=== PATIENT | male | born 1945 ===

== ENCOUNTER 2018-08-28 13:00 | Outpatient (CLI) | payer MEDICARE, OTHER | END 2018-08-28 23:59 | disposition home health service (06) | LOC: WOU 13:00 | PROVIDERS: ATTEND Podiatrist Foot & Ankle Surgery | DX: E11.621 Type 2 diabetes mellitus with foot ulcer (principal); Z89.422 Acquired absence of other left toe(s); E11.51 Type 2 diabetes mellitus with diabetic peripheral angiopathy without gangrene; L97.422 Non-pressure chronic ulcer of left heel and midfoot with fat layer exposed; I10 Essential (primary) hypertension; Z87.891 Personal history of nicotine dependence; Z79.4 Long term (current) use of insulin; E11.649 Type 2 diabetes mellitus with hypoglycemia without coma | CPT/HCPCS: 11042; A6402; Z7610 ==

== ENCOUNTER 2018-09-04 13:30 | Outpatient (CLI) | payer MEDICARE, OTHER | END 2018-09-04 23:59 | disposition home health service (06) | LOC: WOU 13:30 | PROVIDERS: ATTEND Podiatrist Foot & Ankle Surgery | DX: E11.621 Type 2 diabetes mellitus with foot ulcer (principal); L97.422 Non-pressure chronic ulcer of left heel and midfoot with fat layer exposed; Z89.422 Acquired absence of other left toe(s); E11.51 Type 2 diabetes mellitus with diabetic peripheral angiopathy without gangrene; I10 Essential (primary) hypertension; Z87.891 Personal history of nicotine dependence; Z79.4 Long term (current) use of insulin | CPT/HCPCS: 11042; A6207; A6402; Z7610; J3490 ==

== ENCOUNTER 2018-10-02 12:30 | Outpatient (CLI) | payer MEDICARE, MEDICAID | END 2018-10-02 23:59 | disposition home health service (06) | LOC: WOU 12:30 | PROVIDERS: ATTEND Podiatrist Foot & Ankle Surgery | DX: E11.621 Type 2 diabetes mellitus with foot ulcer (principal); L97.422 Non-pressure chronic ulcer of left heel and midfoot with fat layer exposed; Z89.422 Acquired absence of other left toe(s); E11.51 Type 2 diabetes mellitus with diabetic peripheral angiopathy without gangrene; Z87.891 Personal history of nicotine dependence; Z83.3 Family history of diabetes mellitus; I10 Essential (primary) hypertension | CPT/HCPCS: 11042; 82962-TC; A6402 ==

== ENCOUNTER 2018-10-09 09:52 | Outpatient (CLI) | payer MEDICARE, MEDICAID | END 2018-10-09 23:59 | disposition home health service (06) | LOC: WOU 09:52 | PROVIDERS: ATTEND Podiatrist Foot & Ankle Surgery | DX: E11.621 Type 2 diabetes mellitus with foot ulcer (principal); L97.422 Non-pressure chronic ulcer of left heel and midfoot with fat layer exposed; E11.51 Type 2 diabetes mellitus with diabetic peripheral angiopathy without gangrene; Z89.422 Acquired absence of other left toe(s); Z87.891 Personal history of nicotine dependence; Z79.4 Long term (current) use of insulin | CPT/HCPCS: 11042; 82962-TC; A6207; A6402 ==

== ENCOUNTER 2018-10-16 11:09 | Outpatient (CLI) | payer MEDICARE, MEDICAID ==
[2019-02-16] MEDS ORDERED: DOXY100T2 PO (13:25)
[2019-02-16] MEDS ORDERED: LOSA25TA3 PO (13:25)
[2019-02-16] MEDS ORDERED: Insulin Glargine,Hum SQ (13:32)
== END 2018-10-16 23:59 | disposition home or self-care (01) ==
LOC: WOU 11:09
PROVIDERS: ATTEND Podiatrist Foot & Ankle Surgery
DX: E11.621 Type 2 diabetes mellitus with foot ulcer (principal); L97.422 Non-pressure chronic ulcer of left heel and midfoot with fat layer exposed; E11.51 Type 2 diabetes mellitus with diabetic peripheral angiopathy without gangrene; Z89.422 Acquired absence of other left toe(s); T87.89 Other complications of amputation stump; I10 Essential (primary) hypertension; Z83.3 Family history of diabetes mellitus; Z87.891 Personal history of nicotine dependence; Z79.4 Long term (current) use of insulin
CPT/HCPCS: 11042; 82962-TC; A6207

== ENCOUNTER 2018-10-23 10:17 | Outpatient (CLI) | payer MEDICARE, OTHER | END 2018-10-23 23:59 | disposition home health service (06) | LOC: WOU 10:17 | PROVIDERS: ATTEND Podiatrist Foot & Ankle Surgery | DX: E11.621 Type 2 diabetes mellitus with foot ulcer (principal); L97.422 Non-pressure chronic ulcer of left heel and midfoot with fat layer exposed; E11.51 Type 2 diabetes mellitus with diabetic peripheral angiopathy without gangrene; Z89.422 Acquired absence of other left toe(s); Z87.891 Personal history of nicotine dependence; Z79.4 Long term (current) use of insulin | CPT/HCPCS: 15275; A6402 ==

== ENCOUNTER 2018-10-30 10:15 | Outpatient (CLI) | payer MEDICARE, OTHER | END 2018-10-30 23:59 | disposition home health service (06) | LOC: WOU 10:15 | PROVIDERS: ATTEND Podiatrist Foot & Ankle Surgery | DX: E11.621 Type 2 diabetes mellitus with foot ulcer (principal); L97.422 Non-pressure chronic ulcer of left heel and midfoot with fat layer exposed; Z89.422 Acquired absence of other left toe(s); E11.51 Type 2 diabetes mellitus with diabetic peripheral angiopathy without gangrene; I10 Essential (primary) hypertension; Z87.891 Personal history of nicotine dependence; Z79.4 Long term (current) use of insulin | CPT/HCPCS: 11042; A6402; Z7610 ==

== ENCOUNTER 2018-11-13 10:08 | Outpatient (CLI) | payer MEDICARE, MEDICAID | END 2018-11-13 23:59 | disposition home health service (06) | LOC: WOU 10:08 | PROVIDERS: ATTEND Podiatrist Foot & Ankle Surgery | DX: E11.621 Type 2 diabetes mellitus with foot ulcer (principal); L97.422 Non-pressure chronic ulcer of left heel and midfoot with fat layer exposed; E11.51 Type 2 diabetes mellitus with diabetic peripheral angiopathy without gangrene; Z89.422 Acquired absence of other left toe(s); I10 Essential (primary) hypertension; Z87.891 Personal history of nicotine dependence; Z79.4 Long term (current) use of insulin; Z79.899 Other long term (current) drug therapy | CPT/HCPCS: 11042; A6402 ==

== ENCOUNTER 2018-12-04 10:45 | Outpatient (CLI) | payer MEDICARE, MEDICAID | END 2018-12-04 23:59 | disposition home health service (06) | LOC: WOU 10:45 | PROVIDERS: ATTEND Podiatrist Foot & Ankle Surgery | DX: E11.621 Type 2 diabetes mellitus with foot ulcer (principal); L97.422 Non-pressure chronic ulcer of left heel and midfoot with fat layer exposed; Z89.422 Acquired absence of other left toe(s); E11.51 Type 2 diabetes mellitus with diabetic peripheral angiopathy without gangrene; I10 Essential (primary) hypertension; Z87.891 Personal history of nicotine dependence; Z79.4 Long term (current) use of insulin; L84 Corns and callosities | CPT/HCPCS: 11042; A6402 ==

== ENCOUNTER 2018-12-19 11:25 | Outpatient (CLI) | payer MEDICARE, MEDICAID ==
[2019-02-16] MEDS ORDERED: DOXY100T2 PO (13:25)
[2019-02-16] MEDS ORDERED: LOSA25TA3 PO (13:25)
[2019-02-16] MEDS ORDERED: Insulin Glargine,Hum SQ (13:32)
== END 2018-12-19 23:59 | disposition home health service (06) ==
LOC: WOU 11:25
PROVIDERS: ATTEND Podiatrist Foot & Ankle Surgery
DX: L97.422 Non-pressure chronic ulcer of left heel and midfoot with fat layer exposed (principal); Z89.422 Acquired absence of other left toe(s); E11.51 Type 2 diabetes mellitus with diabetic peripheral angiopathy without gangrene; Z87.891 Personal history of nicotine dependence; I10 Essential (primary) hypertension; Z79.4 Long term (current) use of insulin; Z79.899 Other long term (current) drug therapy
CPT/HCPCS: 11042; A6402 ×2

== ENCOUNTER 2018-12-25 10:55 | Outpatient (CLI) | payer MEDICARE, MEDICAID | END 2018-12-25 23:59 | disposition home or self-care (01) | LOC: WOU 10:55 | PROVIDERS: ATTEND Podiatrist Foot & Ankle Surgery | DX: E11.621 Type 2 diabetes mellitus with foot ulcer (principal); L97.422 Non-pressure chronic ulcer of left heel and midfoot with fat layer exposed; Z89.422 Acquired absence of other left toe(s); E11.51 Type 2 diabetes mellitus with diabetic peripheral angiopathy without gangrene; I10 Essential (primary) hypertension; Z83.3 Family history of diabetes mellitus; Z79.4 Long term (current) use of insulin; Z79.899 Other long term (current) drug therapy | CPT/HCPCS: 11042; A6402 ==

== ENCOUNTER 2019-01-01 10:35 | Outpatient (CLI) | payer MEDICARE, MEDICAID | END 2019-01-01 23:59 | disposition home health service (06) | LOC: WOU 10:35 | PROVIDERS: ATTEND Podiatrist Foot & Ankle Surgery | DX: E11.621 Type 2 diabetes mellitus with foot ulcer (principal); L97.422 Non-pressure chronic ulcer of left heel and midfoot with fat layer exposed; E11.51 Type 2 diabetes mellitus with diabetic peripheral angiopathy without gangrene; Z89.422 Acquired absence of other left toe(s); I10 Essential (primary) hypertension; Z87.891 Personal history of nicotine dependence; Z79.4 Long term (current) use of insulin; Z79.899 Other long term (current) drug therapy | CPT/HCPCS: 15275; A6402; Q4186; A6209 ==

== ENCOUNTER 2019-01-08 11:30 | Outpatient (CLI) | payer MEDICARE, MEDICAID | END 2019-01-08 23:59 | disposition home or self-care (01) | LOC: WOU 11:30 | PROVIDERS: ATTEND Podiatrist Foot & Ankle Surgery | DX: E11.621 Type 2 diabetes mellitus with foot ulcer (principal); L97.422 Non-pressure chronic ulcer of left heel and midfoot with fat layer exposed; E11.51 Type 2 diabetes mellitus with diabetic peripheral angiopathy without gangrene; Z89.422 Acquired absence of other left toe(s); I10 Essential (primary) hypertension; Z87.891 Personal history of nicotine dependence; Z79.4 Long term (current) use of insulin; Z79.899 Other long term (current) drug therapy | CPT/HCPCS: 15275; A6402 ==

== ENCOUNTER 2019-01-15 11:00 | Outpatient (CLI) | payer MEDICARE, MEDICAID ==
[2019-02-16] MEDS ORDERED: LOSA25TA3 PO (13:25)
[2019-02-16] MEDS ORDERED: DOXY100T2 PO (13:25)
[2019-02-16] MEDS ORDERED: Insulin Glargine,Hum SQ (13:32)
== END 2019-01-15 23:59 | disposition home health service (06) ==
LOC: WOU 11:00
PROVIDERS: ATTEND Podiatrist Foot & Ankle Surgery
DX: E11.621 Type 2 diabetes mellitus with foot ulcer (principal); L97.422 Non-pressure chronic ulcer of left heel and midfoot with fat layer exposed; E11.51 Type 2 diabetes mellitus with diabetic peripheral angiopathy without gangrene; Z79.4 Long term (current) use of insulin; I10 Essential (primary) hypertension; Z87.891 Personal history of nicotine dependence; Z89.422 Acquired absence of other left toe(s); Z79.899 Other long term (current) drug therapy
CPT/HCPCS: 11042; 82962; A6209; A6402

== ENCOUNTER 2019-01-19 11:11 | Outpatient (CLI) | payer MEDICARE, MEDICAID | END 2019-01-19 23:59 | disposition home health service (06) | LOC: WOU 11:11 | PROVIDERS: ATTEND Podiatrist Foot & Ankle Surgery | DX: E11.621 Type 2 diabetes mellitus with foot ulcer (principal); L97.422 Non-pressure chronic ulcer of left heel and midfoot with fat layer exposed; E11.51 Type 2 diabetes mellitus with diabetic peripheral angiopathy without gangrene; Z89.432 Acquired absence of left foot; Z79.4 Long term (current) use of insulin | CPT/HCPCS: 11042; 82962; A6209; A6402 ==

== ENCOUNTER 2019-01-22 11:20 | Outpatient (CLI) | payer MEDICARE, MEDICAID | END 2019-01-22 23:59 | disposition home health service (06) | LOC: WOU 11:20 | PROVIDERS: ATTEND Podiatrist Foot & Ankle Surgery | DX: E11.621 Type 2 diabetes mellitus with foot ulcer (principal); L97.422 Non-pressure chronic ulcer of left heel and midfoot with fat layer exposed; E11.51 Type 2 diabetes mellitus with diabetic peripheral angiopathy without gangrene; Z89.422 Acquired absence of other left toe(s); Z89.432 Acquired absence of left foot; Z83.3 Family history of diabetes mellitus; T87.89 Other complications of amputation stump | CPT/HCPCS: 11042; A6209; A6402 ==

== ENCOUNTER 2019-01-29 12:00 | Outpatient (CLI) | payer MEDICARE, MEDICAID ==
[2019-02-16] MEDS ORDERED: DOXY100T2 PO (13:25)
[2019-02-16] MEDS ORDERED: LOSA25TA3 PO (13:25)
[2019-02-16] MEDS ORDERED: Insulin Glargine,Hum SQ (13:32)
== END 2019-01-29 23:59 | disposition home or self-care (01) ==
LOC: WOU 12:00
PROVIDERS: ATTEND Podiatrist Foot & Ankle Surgery
DX: E11.621 Type 2 diabetes mellitus with foot ulcer (principal); L97.422 Non-pressure chronic ulcer of left heel and midfoot with fat layer exposed; Z89.422 Acquired absence of other left toe(s); E11.51 Type 2 diabetes mellitus with diabetic peripheral angiopathy without gangrene; I10 Essential (primary) hypertension; Z87.891 Personal history of nicotine dependence; Z79.4 Long term (current) use of insulin
CPT/HCPCS: 11042; A6209; A6402

== ENCOUNTER 2019-02-05 11:15 | Outpatient (CLI) | payer MEDICARE, MEDICAID ==
[2019-02-16] MEDS ORDERED: LOSA25TA3 PO (13:25)
[2019-02-16] MEDS ORDERED: DOXY100T2 PO (13:25)
[2019-02-16] MEDS ORDERED: Insulin Glargine,Hum SQ (13:32)
== END 2019-02-05 23:59 | disposition home health service (06) ==
LOC: WOU 11:15
PROVIDERS: ATTEND Podiatrist Foot & Ankle Surgery
DX: E11.621 Type 2 diabetes mellitus with foot ulcer (principal); L97.422 Non-pressure chronic ulcer of left heel and midfoot with fat layer exposed; Z89.422 Acquired absence of other left toe(s); E11.51 Type 2 diabetes mellitus with diabetic peripheral angiopathy without gangrene; I10 Essential (primary) hypertension; Z87.891 Personal history of nicotine dependence; Z79.4 Long term (current) use of insulin; Z79.899 Other long term (current) drug therapy
CPT/HCPCS: 11042; A6209; A6402

== ENCOUNTER 2019-02-09 10:55 | Outpatient (CLI) | payer MEDICARE, MEDICAID ==
[2019-02-09] MEDS ORDERED: BRIM5DRO2 LEFTEYE (13:01)
[2019-02-09] MEDS ORDERED: AMLO10TA7 PO (13:01)
[2019-02-09] MEDS ORDERED: TRAV5DRO EACHEYE (13:01)
[2019-02-09] MEDS ORDERED: INSU100V (13:01)
[2019-02-09] MEDS ORDERED: ASPI-1169 PO (13:02)
[2019-02-16] MEDS ORDERED: LOSA25TA3 PO (13:25)
[2019-02-16] MEDS ORDERED: DOXY100T2 PO (13:25)
[2019-02-16] MEDS ORDERED: Insulin Glargine,Hum SQ (13:32)
== END 2019-02-09 23:59 | disposition home health service (06) ==
LOC: WOU 10:55
PROVIDERS: ATTEND Podiatrist Foot & Ankle Surgery
DX: E11.621 Type 2 diabetes mellitus with foot ulcer (principal); L97.422 Non-pressure chronic ulcer of left heel and midfoot with fat layer exposed; E11.51 Type 2 diabetes mellitus with diabetic peripheral angiopathy without gangrene; E11.65 Type 2 diabetes mellitus with hyperglycemia; Z79.4 Long term (current) use of insulin; Z89.432 Acquired absence of left foot; I10 Essential (primary) hypertension; Z87.891 Personal history of nicotine dependence
CPT/HCPCS: 11042; A6402

== ENCOUNTER 2019-02-09 12:19 | Inpatient (IN) | payer MEDICARE, MEDICAID ==
[~2019-02-09] VITALS: Ht 185.4 cm; Wt 84.8 kg
[2019-02-09] MEDS ORDERED: PIPERACILLIN /TAZOBACTAM 3.375 G in IV D5W 50 ML IV ONE (13:00)
[2019-02-09] MEDS ORDERED: VANCOMYCIN 1 GM in IV D5W 250 ML IV ONE (13:00)
[2019-02-09 13:01] LABS: BASOPHILS # (AUTO) 0.1 /CMM (0.0-0.2); BASOPHILS % (AUTO) 1.1 % (0.0-2.0); EOSINOPHILS % (AUTO) 2.2 % (0.0-6.0); HEMATOCRIT 38 % (39-51); HEMOGLOBIN 12.8 g/dL (13.5-17.5); LYMPHOCYTES # (AUTO) 1.5 /CMM (0.8-4.8); LYMPHOCYTES % (AUTO) 26.4 % (20.0-44.0); MEAN CORPUSCULAR HGB CONC 34 g/dl (31.0-36.0); MEAN CORPUSCULAR VOLUME 89 fL (80-96); MONOCYTES # (AUTO) 0.5 /CMM (0.1-1.30); NEUTROPHILS # (AUTO) 3.6 /CMM (1.8-8.9); NEUTROPHILS % (AUTO) 62.3 % (43.0-81.0); PLATELET COUNT (AUTO) 221 /CMM (150-450); RED BLOOD CELL COUNT(AUTO) 4.27 MIL/uL (4.5-6.0); WHITE BLOOD COUNT (AUTO) 5.8 K/uL (4.3-11.0)
[2019-02-09] MEDS ORDERED: BRIM5DRO2 LEFTEYE (13:01)
[2019-02-09] MEDS ORDERED: INSU100V (13:01)
[2019-02-09] MEDS ORDERED: TRAV5DRO EACHEYE (13:01)
[2019-02-09] MEDS ORDERED: AMLO10TA7 PO (13:01)
[2019-02-09] MEDS ORDERED: ASPI-1169 PO (13:02)
[2019-02-09 13:13] LABS: CALCIUM, SERUM 9.2 mg/dL (8.5-10.1); CARBON DIOXIDE 23 mmol/L (21-32); CHLORIDE 104 mmol/L (98-107); CREATININE 1.6 mg/dL (0.6-1.3); GLUCOSE 261 mg/dL (74-106); POTASSIUM 4.3 mmol/L (3.5-5.1); SODIUM SERUM 138 mmol/L (136-145); UREA NITROGEN, BLOOD 30 mg/dL (7-18)
[2019-02-09 15:00] VITALS: BP 163/72
[2019-02-09] MEDS ORDERED: DEXTROSE 50%-WATER 50 ML DISP.SYRIN IV PRN (15:30)
[2019-02-09] MEDS: BLOOD SUGAR DIAGNOSTIC 1 EACH STRIP VI SCH ×2 (16:56→21:10)
[2019-02-09] MEDS: INSULIN REGULAR, HUMAN 100 UNIT/ML 3 ML VIAL SQ PRN (16:59)
[2019-02-09] MEDS ORDERED: FEE PK DOSING 1 MIN EA MC ONE (17:22)
[2019-02-09] MEDS: TIMOLOL 0.5% SOLN OPHTH 5 ML BOTTLE LEFTEYE SCH (17:58)
[2019-02-09] MEDS: BRIMONIDINE TARTRATE OPHT SOLN 5 ML BOTTLE LEFTEYE SCH (17:59)
[2019-02-09] MEDS: VANCOMYCIN 1 GM in IV D5W 250 ML IV SCH (17:59)
[2019-02-09] MEDS: PIPERACILLIN /TAZOBACTAM 3.375 G in IV D5W 50 ML IV SCH (19:20)
[2019-02-09 20:00] VITALS: BP 126/74
[2019-02-09] MEDS: LATANOPROST EYE DROP 0.005% 2.5 ML BOTTLE EACHEYE SCH (21:10)
[2019-02-09] MEDS: *INSULIN REGULAR(HUMULIN R)HUM 100 UNIT/ML VIAL SQ PRN (21:12)
[2019-02-10] MEDS: PIPERACILLIN /TAZOBACTAM 3.375 G in IV D5W 50 ML IV SCH ×4 (00:44→17:36)
[2019-02-10] MEDS: INSULIN REGULAR, HUMAN 100 UNIT/ML 3 ML VIAL SQ PRN ×3 (06:30→17:31)
[2019-02-10] MEDS: BLOOD SUGAR DIAGNOSTIC 1 EACH STRIP VI SCH ×4 (06:30→22:49)
[2019-02-10 06:37] LABS: BASOPHILS % (AUTO) 0.7 % (0.0-2.0); EOSINOPHILS % (AUTO) 4.6 % (0.0-6.0); HEMATOCRIT 32 % (39-51); LYMPHOCYTES # (AUTO) 1.6 /CMM (0.8-4.8); LYMPHOCYTES % (AUTO) 32.2 % (20.0-44.0); MEAN CORPUSCULAR HGB CONC 34 g/dl (31.0-36.0); MEAN CORPUSCULAR VOLUME 88 fL (80-96); MONOCYTES # (AUTO) 0.5 /CMM (0.1-1.30); MONOCYTES % (AUTO) 10.5 % (2.0-12.0); NEUTROPHILS # (AUTO) 2.5 /CMM (1.8-8.9); PLATELET COUNT (AUTO) 204 /CMM (150-450); RED BLOOD CELL COUNT(AUTO) 3.66 MIL/uL (4.5-6.0); WHITE BLOOD COUNT (AUTO) 4.9 K/uL (4.3-11.0)
[2019-02-10 07:04] LABS: CALCIUM, SERUM 8.3 mg/dL (8.5-10.1); CARBON DIOXIDE 25 mmol/L (21-32); CHLORIDE 108 mmol/L (98-107); CREATININE 1.5 mg/dL (0.6-1.3); GLUCOSE 254 mg/dL (74-106); POTASSIUM 3.7 mmol/L (3.5-5.1); SODIUM SERUM 142 mmol/L (136-145); UREA NITROGEN, BLOOD 25 mg/dL (7-18)
[2019-02-10 08:00] VITALS: BP 125/66
[2019-02-10] MEDS: BRIMONIDINE TARTRATE OPHT SOLN 5 ML BOTTLE LEFTEYE SCH ×2 (08:29→17:33)
[2019-02-10] MEDS: TIMOLOL 0.5% SOLN OPHTH 5 ML BOTTLE LEFTEYE SCH ×2 (08:29→17:33)
[2019-02-10] MEDS: ASPIRIN 81 MG TAB.CHEW PO SCH (08:29)
[2019-02-10] MEDS: AMLODIPINE BESYLATE 10 MG TABLET PO SCH (08:30)
[2019-02-10] MEDS: VANCOMYCIN 1 GM in IV D5W 250 ML IV SCH (12:30)
[2019-02-10] MEDS: IV NS 0.9% 1,000 ML IV PRN (15:47)
[2019-02-10 16:00] VITALS: BP 141/72
[2019-02-10 16:19] VITALS: BP 144/72
[2019-02-10] MEDS: INSULIN NPH, HUMAN ISOPHANE 100 UNIT/ML CARTRIDGE SQ SCH (17:28)
[2019-02-10 20:00] VITALS: BP 136/71
[2019-02-10] MEDS: LEVOFLOXACIN (500MG) 500 MG TABLET PO SCH (20:53)
[2019-02-10] MEDS ORDERED: INSULIN GLARGINE, 100 UNIT/ML CARTRIDGE SQ SCH (22:00)
[2019-02-10] MEDS: LATANOPROST EYE DROP 0.005% 2.5 ML BOTTLE EACHEYE SCH (22:46)
[2019-02-10] MEDS: *INSULIN REGULAR(HUMULIN R)HUM 100 UNIT/ML VIAL SQ PRN (22:50)
[2019-02-11] MEDS: IV NS 0.9% 1,000 ML IV PRN ×2 (05:55→21:37)
[2019-02-11] MEDS: VANCOMYCIN 1 GM in IV D5W 250 ML IV SCH (05:55)
[2019-02-11] MEDS: BLOOD SUGAR DIAGNOSTIC 1 EACH STRIP VI SCH ×4 (06:59→21:26)
[2019-02-11] MEDS: INSULIN REGULAR, HUMAN 100 UNIT/ML 3 ML VIAL SQ PRN ×2 (07:56→12:05)
[2019-02-11 08:00] VITALS: BP 149/74
[2019-02-11] MEDS: CADEXOMER IODINE 40 GM TUBE TP SCH (09:00)
[2019-02-11] MEDS: AMLODIPINE BESYLATE 10 MG TABLET PO SCH (09:36)
[2019-02-11] MEDS: ASPIRIN 81 MG TAB.CHEW PO SCH (09:37)
[2019-02-11] MEDS: INSULIN NPH, HUMAN ISOPHANE 100 UNIT/ML CARTRIDGE SQ SCH ×4 (09:39→17:25)
[2019-02-11] MEDS: BRIMONIDINE TARTRATE OPHT SOLN 5 ML BOTTLE LEFTEYE SCH ×2 (09:40→16:28)
[2019-02-11] MEDS: TIMOLOL 0.5% SOLN OPHTH 5 ML BOTTLE LEFTEYE SCH ×2 (09:40→16:28)
[2019-02-11 16:00] VITALS: BP 139/67
[2019-02-11 20:00] VITALS: BP 157/75
[2019-02-11] MEDS: LATANOPROST EYE DROP 0.005% 2.5 ML BOTTLE EACHEYE SCH (21:28)
[2019-02-11] MEDS: INSULIN GLARGINE, 100 UNIT/ML CARTRIDGE SQ SCH (21:35)
[2019-02-11] MEDS: LEVOFLOXACIN (500MG) 500 MG TABLET PO SCH (21:36)
[2019-02-11] MEDS: *INSULIN REGULAR(HUMULIN R)HUM 100 UNIT/ML VIAL SQ PRN (21:44)
[2019-02-12] MEDS: VANCOMYCIN 1 GM in IV D5W 250 ML IV SCH ×2 (00:23→17:25)
[2019-02-12] MEDS: BLOOD SUGAR DIAGNOSTIC 1 EACH STRIP VI SCH ×4 (06:16→21:50)
[2019-02-12 07:09] LABS: BASOPHILS % (AUTO) 0.7 % (0.0-2.0); EOSINOPHILS % (AUTO) 3.9 % (0.0-6.0); HEMATOCRIT 33 % (39-51); HEMOGLOBIN 11.2 g/dL (13.5-17.5); LYMPHOCYTES # (AUTO) 1.4 /CMM (0.8-4.8); LYMPHOCYTES % (AUTO) 29.6 % (20.0-44.0); MEAN CORPUSCULAR HGB CONC 34 g/dl (31.0-36.0); MEAN CORPUSCULAR VOLUME 88 fL (80-96); MONOCYTES # (AUTO) 0.4 /CMM (0.1-1.30); MONOCYTES % (AUTO) 8.9 % (2.0-12.0); NEUTROPHILS # (AUTO) 2.7 /CMM (1.8-8.9); NEUTROPHILS % (AUTO) 56.9 % (43.0-81.0); PLATELET COUNT (AUTO) 214 /CMM (150-450); RED BLOOD CELL COUNT(AUTO) 3.76 MIL/uL (4.5-6.0); WHITE BLOOD COUNT (AUTO) 4.7 K/uL (4.3-11.0)
[2019-02-12 07:47] LABS: CALCIUM, SERUM 8.5 mg/dL (8.5-10.1); CARBON DIOXIDE 25 mmol/L (21-32); CHLORIDE 108 mmol/L (98-107); CREATININE 1.4 mg/dL (0.6-1.3); GLUCOSE 167 mg/dL (74-106); PHOSPHORUS 4.1 mg/dL (2.5-4.9); POTASSIUM 3.6 mmol/L (3.5-5.1); SODIUM SERUM 141 mmol/L (136-145); UREA NITROGEN, BLOOD 18 mg/dL (7-18)
[2019-02-12 08:00] VITALS: BP 139/74
[2019-02-12] MEDS: CADEXOMER IODINE 40 GM TUBE TP SCH (09:00)
[2019-02-12] MEDS: INSULIN REGULAR, HUMAN 100 UNIT/ML 3 ML VIAL SQ PRN ×3 (12:11→22:01)
[2019-02-12] MEDS: INSULIN NPH, HUMAN ISOPHANE 100 UNIT/ML CARTRIDGE SQ SCH ×3 (12:12→16:46)
[2019-02-12] MEDS: TIMOLOL 0.5% SOLN OPHTH 5 ML BOTTLE LEFTEYE SCH ×2 (12:18→16:54)
[2019-02-12] MEDS: BRIMONIDINE TARTRATE OPHT SOLN 5 ML BOTTLE LEFTEYE SCH ×2 (12:19→16:54)
[2019-02-12] MEDS: ASPIRIN 81 MG TAB.CHEW PO SCH (12:21)
[2019-02-12] MEDS: AMLODIPINE BESYLATE 10 MG TABLET PO SCH (12:21)
[2019-02-12 16:00] VITALS: BP 141/78
[2019-02-12 20:00] VITALS: BP 137/72
[2019-02-12] MEDS: DOXYCYCLINE HYCLATE (100 MG) 100 MG TABLET PO SCH (21:50)
[2019-02-12] MEDS: INSULIN GLARGINE, 100 UNIT/ML CARTRIDGE SQ SCH (21:58)
[2019-02-12] MEDS: LATANOPROST EYE DROP 0.005% 2.5 ML BOTTLE EACHEYE SCH (22:02)
[2019-02-13] MEDS: IV NS 0.9% 1,000 ML IV PRN ×2 (02:12→17:19)
[2019-02-13] MEDS: BLOOD SUGAR DIAGNOSTIC 1 EACH STRIP VI SCH ×4 (06:40→23:36)
[2019-02-13 08:00] VITALS: BP 142/69
[2019-02-13 08:01] LABS: CALCIUM, SERUM 8.8 mg/dL (8.5-10.1); CARBON DIOXIDE 23 mmol/L (21-32); CHLORIDE 110 mmol/L (98-107); CREATININE 1.3 mg/dL (0.6-1.3); GLUCOSE 71 mg/dL (74-106); POTASSIUM 3.5 mmol/L (3.5-5.1); SODIUM SERUM 145 mmol/L (136-145); UREA NITROGEN, BLOOD 21 mg/dL (7-18)
[2019-02-13] MEDS: ASPIRIN 81 MG TAB.CHEW PO SCH (08:27)
[2019-02-13] MEDS: DOXYCYCLINE HYCLATE (100 MG) 100 MG TABLET PO SCH ×2 (08:27→21:31)
[2019-02-13] MEDS: AMLODIPINE BESYLATE 10 MG TABLET PO SCH (08:27)
[2019-02-13] MEDS: BRIMONIDINE TARTRATE OPHT SOLN 5 ML BOTTLE LEFTEYE SCH ×2 (08:28→17:03)
[2019-02-13] MEDS: TIMOLOL 0.5% SOLN OPHTH 5 ML BOTTLE LEFTEYE SCH ×2 (08:28→17:03)
[2019-02-13] MEDS: INSULIN NPH, HUMAN ISOPHANE 100 UNIT/ML CARTRIDGE SQ SCH ×3 (08:35→17:00)
[2019-02-13] MEDS: CADEXOMER IODINE 40 GM TUBE TP SCH ×2 (08:36→11:18)
[2019-02-13] MEDS: VANCOMYCIN 1 GM in IV D5W 250 ML IV SCH (11:13)
[2019-02-13] MEDS: INSULIN REGULAR, HUMAN 100 UNIT/ML 3 ML VIAL SQ PRN ×3 (11:16→21:50)
[2019-02-13 16:00] VITALS: BP 146/56
[2019-02-13] MEDS: LOSARTAN POTASSIUM 25 MG TABLET PO SCH (16:55)
[2019-02-13 20:00] VITALS: BP 143/73
[2019-02-13] MEDS: LATANOPROST EYE DROP 0.005% 2.5 ML BOTTLE EACHEYE SCH (21:32)
[2019-02-13] MEDS: INSULIN GLARGINE, 100 UNIT/ML CARTRIDGE SQ SCH (21:38)
[2019-02-14] MEDS: IV NS 0.9% 1,000 ML IV PRN (06:38)
[2019-02-14] MEDS: BLOOD SUGAR DIAGNOSTIC 1 EACH STRIP VI SCH ×4 (06:56→22:11)
[2019-02-14 07:14] LABS: CALCIUM, SERUM 8.6 mg/dL (8.5-10.1); CARBON DIOXIDE 24 mmol/L (21-32); CHLORIDE 110 mmol/L (98-107); CREATININE 1.2 mg/dL (0.6-1.3); GLUCOSE 92 mg/dL (74-106); POTASSIUM 3.6 mmol/L (3.5-5.1); SODIUM SERUM 144 mmol/L (136-145); UREA NITROGEN, BLOOD 18 mg/dL (7-18)
[2019-02-14 08:00] VITALS: BP 146/70
[2019-02-14] MEDS: AMLODIPINE BESYLATE 10 MG TABLET PO SCH (09:22)
[2019-02-14] MEDS: ASPIRIN 81 MG TAB.CHEW PO SCH (09:22)
[2019-02-14] MEDS: DOXYCYCLINE HYCLATE (100 MG) 100 MG TABLET PO SCH ×2 (09:22→21:11)
[2019-02-14] MEDS: LOSARTAN POTASSIUM 25 MG TABLET PO SCH (09:22)
[2019-02-14] MEDS: TIMOLOL 0.5% SOLN OPHTH 5 ML BOTTLE LEFTEYE SCH ×2 (09:23→16:55)
[2019-02-14] MEDS: BRIMONIDINE TARTRATE OPHT SOLN 5 ML BOTTLE LEFTEYE SCH ×2 (09:23→16:55)
[2019-02-14] MEDS: CADEXOMER IODINE 40 GM TUBE TP SCH (09:31)
[2019-02-14] MEDS: INSULIN NPH, HUMAN ISOPHANE 100 UNIT/ML CARTRIDGE SQ SCH ×3 (09:58→17:00)
[2019-02-14] MEDS: INSULIN REGULAR, HUMAN 100 UNIT/ML 3 ML VIAL SQ PRN (12:08)
[2019-02-14 16:00] VITALS: BP 138/70
[2019-02-14] MEDS: *INSULIN REGULAR(HUMULIN R)HUM 100 UNIT/ML VIAL SQ PRN (16:58)
[2019-02-14 20:00] VITALS: BP 117/65
[2019-02-14] MEDS: INSULIN GLARGINE, 100 UNIT/ML CARTRIDGE SQ SCH (21:54)
[2019-02-14] MEDS: LATANOPROST EYE DROP 0.005% 2.5 ML BOTTLE EACHEYE SCH (22:04)
[2019-02-15] MEDS: BLOOD SUGAR DIAGNOSTIC 1 EACH STRIP VI SCH ×4 (07:26→22:03)
[2019-02-15 08:00] VITALS: BP 148/79
[2019-02-15] MEDS: LOSARTAN POTASSIUM 25 MG TABLET PO SCH (09:24)
[2019-02-15] MEDS: DOXYCYCLINE HYCLATE (100 MG) 100 MG TABLET PO SCH ×2 (09:24→21:07)
[2019-02-15] MEDS: AMLODIPINE BESYLATE 10 MG TABLET PO SCH (09:24)
[2019-02-15] MEDS: ASPIRIN 81 MG TAB.CHEW PO SCH (09:24)
[2019-02-15] MEDS: CADEXOMER IODINE 40 GM TUBE TP SCH (09:25)
[2019-02-15] MEDS: TIMOLOL 0.5% SOLN OPHTH 5 ML BOTTLE LEFTEYE SCH ×2 (09:26→16:46)
[2019-02-15] MEDS: BRIMONIDINE TARTRATE OPHT SOLN 5 ML BOTTLE LEFTEYE SCH ×2 (09:26→16:46)
[2019-02-15] MEDS: INSULIN NPH, HUMAN ISOPHANE 100 UNIT/ML CARTRIDGE SQ SCH ×3 (09:33→17:32)
[2019-02-15] MEDS: INSULIN REGULAR, HUMAN 100 UNIT/ML 3 ML VIAL SQ PRN ×2 (12:37→17:35)
[2019-02-15 16:00] VITALS: BP 132/70
[2019-02-15 16:39] VITALS: BP 132/70
[2019-02-15 20:00] VITALS: BP 140/71
[2019-02-15 20:51] VITALS: BP 140/71
[2019-02-15] MEDS: INSULIN GLARGINE, 100 UNIT/ML CARTRIDGE SQ SCH (22:04)
[2019-02-15] MEDS: LATANOPROST EYE DROP 0.005% 2.5 ML BOTTLE EACHEYE SCH (22:06)
[2019-02-16 08:00] VITALS: BP 132/68
[2019-02-16] MEDS: INSULIN NPH, HUMAN ISOPHANE 100 UNIT/ML CARTRIDGE SQ SCH ×2 (08:21→13:02)
[2019-02-16] MEDS: BLOOD SUGAR DIAGNOSTIC 1 EACH STRIP VI SCH ×2 (08:22→11:34)
[2019-02-16] MEDS: BRIMONIDINE TARTRATE OPHT SOLN 5 ML BOTTLE LEFTEYE SCH (08:26)
[2019-02-16] MEDS: DOXYCYCLINE HYCLATE (100 MG) 100 MG TABLET PO SCH (08:27)
[2019-02-16] MEDS: TIMOLOL 0.5% SOLN OPHTH 5 ML BOTTLE LEFTEYE SCH (08:27)
[2019-02-16] MEDS: LOSARTAN POTASSIUM 25 MG TABLET PO SCH (08:28)
[2019-02-16] MEDS: AMLODIPINE BESYLATE 10 MG TABLET PO SCH (08:29)
[2019-02-16] MEDS: ASPIRIN 81 MG TAB.CHEW PO SCH (08:29)
[2019-02-16] MEDS: CADEXOMER IODINE 40 GM TUBE TP SCH (08:30)
[2019-02-16] MEDS ORDERED: LOSA25TA3 PO (13:25)
[2019-02-16] MEDS ORDERED: DOXY100T2 PO (13:25)
[2019-02-16] MEDS ORDERED: Insulin Glargine,Hum SQ (13:32)
[2019-02-16 14:52] VITALS: BP 168/85
== END 2019-02-16 15:45 | DRG 463 ==
LOC: ER 12:21 → MED 14:31
PROVIDERS: ADMIT Internal Medicine Nephrology; ATTEND Internal Medicine
PROC: 0JBP0ZZ Excision of Left Lower Leg Subcutaneous Tissue and Fascia, Open Approach (ICD-10-PCS; principal; 2019-02-11)
DX: T87.54 Necrosis of amputation stump, left lower extremity (principal); N17.0 Acute kidney failure with tubular necrosis; L03.116 Cellulitis of left lower limb; L97.528 Non-pressure chronic ulcer of other part of left foot with other specified severity; E11.621 Type 2 diabetes mellitus with foot ulcer; E11.65 Type 2 diabetes mellitus with hyperglycemia; D64.9 Anemia, unspecified; E11.22 Type 2 diabetes mellitus with diabetic chronic kidney disease; I12.9 Hypertensive chronic kidney disease with stage 1 through stage 4 chronic kidney disease, or unspecified chronic kidney disease; N18.9 Chronic kidney disease, unspecified; E11.40 Type 2 diabetes mellitus with diabetic neuropathy, unspecified; Y83.8 Other surgical procedures as the cause of abnormal reaction of the patient, or of later complication, without mention of misadventure at the time of the procedure; Y92.009 Unspecified place in unspecified non-institutional (private) residence as the place of occurrence of the external cause; Z79.4 Long term (current) use of insulin
CPT/HCPCS: 36415; 73630-TC; 80048-TC; 80202-TC; 82962-TC; 83735-TC; 84100-TC; 85025-TC; 85730-TC; 87070-TC; 87081-TC; A6253; A6403; G0378; J1815; J2543; J3370; J7030; J7050; J7060